=== PATIENT | male | born 1970 | race Caucasian/White ===

== ENCOUNTER 2017-11-21 15:16 | Outpatient (CLI) | payer BC ==
[2017-11-21 15:44] LABS: Hemoglobin 16.3 g/dL (14.0-18.0); Mean Corpuscular HGB CONC 32.8 g/dL (32.0-36.0); Mean Corpuscular Hemoglobin 27.8 pg (27.0-31.0); Mean Corpuscular Volume 84.8 fl (80.0-94.0); Mean Platelet Volume 7.1 fL (7.4-10.4); Platelet Count 306 thou/uL (130-400); RBC Distribution Width 11.9 % (11.5-14.5); Red Blood Cell (RBC) Count 5.87 mill/uL (4.70-6.10); White Blood Cell (WBC) Count 7.5 thou/uL (4.8-10.8)
[2017-11-21 15:51] LABS: INR-International Normal Ratio 1.1; PTT 29.3 SEC (22.9-36.1)
[2017-11-21 15:56] LABS: Bilirubin Negative (Negative); Blood, Urine Trace (Negative); Clarity CLEAR (Clear); Glucose, Urine (Dipstick) Negative (Negative); Leukocyte Negative (Negative); Nitrite Negative (Negative); Protein, Urine (Dipstick) Negative (Neg-Trace); Specific Gravity, Urine 1.028 (1.002-1.036); Urobilinogen 0.2 mg/dL (0.2-1.0); pH, Urine 5.5 (5.0-9.0)
[2017-11-21 16:00] LABS: Bacteria/HPF None Seen HPF (None Seen); Hyaline Casts/LPF 0-3 HYALINE CAST LPF (0-3 Hyaline); RBC/HPF 0-3 HPF (0-3); Squamous Epithelial None Seen HPF (0-3); WBC/HPF 0-3 HPF (0-3)
[2017-11-21 16:01] LABS: Anion Gap 12 mmol/L (10-20); BUN (Urea Nitrogen) 25 mg/dL (8.9-20.6); Calc. Creatinine Clearance 0 mL/min (70-130); Calcium 9.4 mg/dL (7.8-10.44); Carbon Dioxide 25 mmol/L (22-29); Chloride 105 mmol/L (98-107); Estimated GFR-MDRD 60; Glucose 102 mg/dL (70-105); Sodium 138 mmol/L (136-145)
[2017-11-21 16:50] LABS: Syphilis Antibody Nonreactive (Nonreactive); Syphilis Antibody Index 0.04 S/CO (<1.00 Non-Reactive)
[2017-11-21 16:54] LABS: HBCM Index 0.06 S/CO (0-0.79); HBSAg Index 0.15 S/CO (0-0.99); HIV (1/2) Antibody/Antigen Non-Reactive (NonReactive); Hep A IgM AB Non-Reactive (NonReactive); Hep A IgM S/CO 0.07 S/CO (0-0.79); Hep B Surf Ag Non-Reactive S/CO (NonReactive); Hep C IgG Ab Non-Reactive (NonReactive); Hep C Index 0.07 S/CO (0-0.79); Hepatitis B Core IGM Abs Non-Reactive (NonReactive); PSA-Asymptomatic (SCREENING) 2.19 ng/mL (0-4.0)
--- NOTE | 2017-11-23 09:02 | EKG ---
Test Reason : Blood Pressure : / mmHG Vent. Rate : 085 BPM Atrial Rate : 085 BPM P-R Int : 136 ms QRS Dur : 094 ms QT Int : 362 ms P-R-T Axes : 070 -70 055 degrees QTc Int : 430 ms Poor data quality, interpretation may be adversely affected /artifact inbaseline. Normal sinus rhythm Left anterior fascicular block Nonspecific ST abnormality Abnormal ECG No previous ECGs available Confirmed by ITEN HORN ([id number]) on 11/23/2017 9:02:10 AM Referred By: ALEJO Confirmed By:TIEN HORN
[2017-11-24 00:50] LABS: Chlamydia by PCR Not Detected (NotDetected); GC by PCR Not Detected (NotDetected)
== END 2017-11-21 15:17 | disposition home or self-care (01) ==
LOC: LABBT 15:16
PROVIDERS: ATTEND Urology
DX: Z01.818 Encounter for other preprocedural examination (principal); A63.0 Anogenital (venereal) warts
CPT/HCPCS: 80048; 80074; 81001; 85027; 85610; 85730; 86780; 87086; 87389; 87491; 87591; 93005; 93010; G0103

== ENCOUNTER 2017-12-04 06:57 | Day surgery (SDC) | payer BC ==
[2017-11-21 15:42] VITALS: BMI 27.8
[2017-12-04] MEDS ORDERED: Levofloxacin 500 mg/D5W 100 ml Premix Bag ONE (08:14)
[2017-12-04] MEDS ORDERED: Fentanyl 100 MCG/2 ML VIAL ONE (08:59)
[2017-12-04] MEDS ORDERED: Bacitracin Zinc Ointment 30 gm TUBE ONE (09:57)
[2017-12-04] MEDS ORDERED: Phenazopyridine HCl 97.5 MG TABLET ONE (10:34)
[2017-12-04] MEDS ORDERED: Oxybutynin 5 MG TAB ONE (10:34)
--- NOTE | 2017-12-04 11:23 | OP ---
PRIMARY CARE PHYSICIAN: Orlin Moses M.D. 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 PROCEDURES: Cystoscopy, excisional removal of jacquelin-meatal condyloma, meatotomy. SURGEON: Jackie Marsh D.O. ANESTHESIA: LMA. COMPLICATIONS: None apparent. DISPOSITION: Minimal. SPECIMEN: Jacquelin-meatal condyloma for permanent. EBL: Minimal. INTRAOPERATIVE FINDINGS: 1. Jacquelin-meatal condylomatous lesion approximately 8-10 mm in total dimension. 2. Cystoscopy without evidence of urethral stricture, no urethral condyloma. 3. Mild BPH. 4. Bladder grossly unremarkable. DRAINS: A 16 Telugu 10 mL Gee catheter to leg bag. INDICATIONS FOR THE PROCEDURE AND HISTORY: Mr. Rios is a 47-year-old male referred to me for a jacquelin-meatal lesion. The patient had sudden onset of difficulty passing urine, split stream. Physical exam demonstrated jacquelin-meatal condylomatous lesion upon everting his meatus. No other lesions were found along the penile shaft or scrotum. He presents today for excisional removal of perineal condyloma. Given the location, cystourethroscopy is advised to rule out further lesion along the course of the urethra. Risks, complications and indications were reviewed with the patient in detail and he desired to proceed. His STD panel is negative. DESCRIPTION OF THE PROCEDURE: After informed consent is signed, the patient is taken to the operating room, placed in a dorsal lithotomy position with the genital area prepped and draped in the usual surgical sterile fashion. Broad- spectrum antibiotics were provided. Bilateral HUBER hose and SCDs placed. We first performed the jacquelin-meatal excisional removal of his condyloma. Upon everting the meatus, there is a condylomatous lesion on both sides of meatus. This was retracted with fine graspers and at the base we excised en bloc total. There was some oozing at the bed of the excisional site. We held pressure here, so that we can further evaluate for complete excision. No further lesion was found. I did perform a rigid cystoscopy at this time demonstrating no further lesions along the course of the urethra. No strictures were found. Bilateral coapting lateral lobes of the prostate are noted with the supraverumontanal length approximately 3 cm. There is a high median bar, bladder was entered which demonstrated no evidence of bladder lesion, tumors, stones or trabeculation. The ureteral orifices somewhat deviated anteriorly; however, they are within the trigone in normal location. Clear efflux of urine was noted. We again surveyed the urethra confirming there was no evidence of lesion, otherwise. At this time, we again staged his meatus. The initial meatal caliber was somewhat small, approximately 14 Telugu caliber. As the excisional biopsy was performed with minimal cautery performed at the base, I did have concern regarding high risk of meatal stenosis. Therefore, decision was made to perform a meatotomy along the ventral aspect of his meatus. Using a hemostat, we marked the area of meatotomy approximately 5 mm. This was excised with Metzenbaum scissors. The meatal mucosa was then everted using 4-0 chromic and an SH needle. Good eversion of the meatal mucosa was noted with no further lesions appreciated. A 16 Telugu Gee catheter was placed and 10 mL insufflated. Bacitracin ointment was applied at the meatus site. He will follow up in my clinic next week for catheter removal and to review pathology. JOE
[2017-12-04] MEDS ORDERED: Lidocaine 1% PF 5 ML VIAL ONE (12:16)
[2017-12-04] MEDS ORDERED: PROPOFOL 200 MG/20 ML VIAL ONE (12:16)
== END 2017-12-04 12:43 | disposition home or self-care (01) ==
LOC: SDC 06:57
PROVIDERS: ATTEND Urology
PROC: 0TJB8ZZ Inspection of Bladder, Via Natural or Artificial Opening Endoscopic (ICD-10-PCS; principal; 2017-12-04)
PROC: 0T7D7ZZ Dilation of Urethra, Via Natural or Artificial Opening (ICD-10-PCS; principal; 2017-12-04)
PROC: 0HBAXZZ Excision of Inguinal Skin, External Approach (ICD-10-PCS; principal; 2017-12-04)
DX: A63.0 Anogenital (venereal) warts (principal); N40.0 Benign prostatic hyperplasia without lower urinary tract symptoms; F32.9 Major depressive disorder, single episode, unspecified; Z79.2 Long term (current) use of antibiotics; Z79.899 Other long term (current) drug therapy; Z88.1 Allergy status to other antibiotic agents; Z88.6 Allergy status to analgesic agent
CPT/HCPCS: 88305; C1769; J1956; J3010

== ENCOUNTER 2019-06-07 15:41 | Observation (INO) | payer BC ==
[2019-06-07 16:22] LABS: Hemoglobin 20.2 g/dL (14.0-18.0); Mean Corpuscular HGB CONC 33.3 g/dL (32.0-36.0); Mean Corpuscular Hemoglobin 28.6 pg (27.0-31.0); Mean Platelet Volume 7.5 fL (7.4-10.4); Platelet Count 261 thou/uL (130-400); RBC Distribution Width 12.7 % (11.5-14.5); Red Blood Cell (RBC) Count 7.05 mill/uL (4.70-6.10); White Blood Cell (WBC) Count 9.4 thou/uL (4.8-10.8)
[2019-06-07 16:23] LABS: #Basophils 0.1 thou/uL (0.0-0.2); #Eosinphils 0.1 thou/uL (0.0-0.7); #Lymphocytes 1.2 thou/uL (1.20-3.40); #Monocytes 0.7 thou/uL (0.11-0.59); #Neutrophils 7.3 thou/uL (1.40-6.50); %Basophils 1.1 % (0.0-1.0); %Eosinophils 0.7 % (0.0-10.0); %Monocytes 7.6 % (0.0-10.0); %Neutrophils 77.6 % (42.0-75.0)
[2019-06-07] MEDS ORDERED: Ondansetron PF 4 MG/2 ML Vial ONE ×2 (16:26→19:00)
[2019-06-07 16:29] LABS: ALT (SGPT) 19 U/L (8-55); AST (SGOT) 18 U/L (5-34); Albumin 4.4 g/dL (3.5-5.0); Alkaline Phosphatase 105 U/L (40-110); Anion Gap 19 mmol/L (10-20); BUN (Urea Nitrogen) 9 mg/dL (8.4-25.7); Bilirubin, Total 0.9 mg/dL (0.2-1.2); CK (CPK) 160 U/L (30-200); Calc. Creatinine Clearance 0 mL/min (70-130); Calcium 9.2 mg/dL (7.8-10.44); Carbon Dioxide 24 mmol/L (22-29); Chloride 102 mmol/L (98-107); Estimated GFR-MDRD 49; Globulin 2.9 g/dL (2.4-3.5); Glucose 130 mg/dL (70-105); Potassium 4.1 mmol/L (3.5-5.1); Protein, Total 7.3 g/dL (6.0-8.3); Sodium 141 mmol/L (136-145)
[2019-06-07 16:30] LABS: Acetaminophen Less than 6.0 mcg/mL (10.0-30.0); Alcohol Less than 10 mg/dL (Less than 10); Salicylate Less than 8.0 mg/dL (15.0-30.0)
[2019-06-07] MEDS ORDERED: Lidocaine 1% 20 ML MDV ONE (16:31)
--- NOTE | 2019-06-07 16:46 | RAD ---
Exam: Chest one view HISTORY:Syncope Comparison: None FINDINGS: Cardiac silhouette: Normal Aorta: Unremarkable Pulmonary vessels: Normal Costophrenic angles: Clear LUNGS: No masses or consolidation. Pneumothorax: None Osseous abnormalities: None IMPRESSION: No acute cardiopulmonary process.
--- NOTE | 2019-06-07 16:50 | CT ---
Exam: MAXILLOFACIAL CT WITHOUT CONTRAST: HISTORY: Trauma. Fall. Laceration over the right eyebrow. COMPARISON: None FINDINGS: Visualized brain parenchyma: Grossly unremarkable Orbits: Bilateral ocular lenses are appropriately located. Both globes are intact. Retrobulbar fat is preserved. Symmetric attenuation of the optic nerves and ocular rectus muscles. Soft tissue structures: There is a right frontal scalp hematoma. Posttraumatic changes in the right s upraorbital and periorbital soft tissues with swelling, hematoma and air due to laceration. Symmetric attenuation of the corporate communications associate spaces. Symmetric attenuation of the parotid and submandibula r glands. Symmetric attenuation visualized paraspinal muscles Aerodigestive tract is patent. Sinuses: There is partial opacification of the right ethmoid air cells. There is an air-fluid level i n the right maxillary sinus, likely due to posttraumatic fluid. Small mucous retention cyst in the left maxillary sinus. Adequate mastoid air cell aeration Nasal bones: Nondisplaced right and left nasal bone fractures are noted. Nasal septum is intact with slight leftward deviation. Bilaterally ostiomeatal complexes are patent Maxilla and mandible: No fractures. Mandibular condyles are appropriately located Upper cervical spine is unremarkable Pterygoid plates are unremarkable Zygomatic arches are intact Osseous margins of the sinuses: No obvious paranasal sinus fracture Osseous margins of the orbits: Minimally displaced right orbital floor fracture. No evidence of herni ation with regards the intraorbital contents. Correlate clinically for entrapment. Fractures near the inferior orbital foramen. IMPRESSION: 1. Right frontal scalp and periorbital posttraumatic change. 2. Bilateral nasal bone fractures nondisplaced 3. Minimally displaced right orbital floor fracture, near the inferior orbital foramen. Transcribed Date/Time: 06/07/2019 5:00 PM
--- NOTE | 2019-06-07 17:11 | CT ---
CT BRAIN WITHOUT CONTRAST: History: Syncope. Head trauma. FINDINGS: Comparison made with exam of 08-30-13. No evidence of acute infarct, hemorrhage, midline shift. The ventricular size is normal and the basil ar cisterns patent. The bony calvarium is intact. There is fluid in the right maxillary sinus. There is right sided periorbital soft tissue swelling. The possibility of fracture of the right maxillary/o rbital wall cannot be excluded. IMPRESSION: 1. No CT evidence of acute intracranial process. 2. Evaluation with CT facial bones is recommended. POS: ANGELICA
--- NOTE | 2019-06-07 17:15 | CT ---
Exam: CT cervical spine without contrast HISTORY: Trauma. Pain. COMPARISON: None FINDINGS: No craniocervical dissociation. Appropriate alignment of the lateral masses of C1 and C2. Intact odon toid process Appropriate alignment of the facets. Straightening of normal cervical lordosis may be due to patient position, muscle spasm or cervical collar. Soft tissue neck structures: No mass, lymphadenopathy or hematoma. No prevertebral soft tissue swelli ng. Upper mediastinum and lung apices: Unremarkable Central spinal canal: Neural foramina and central spinal canal are patent. Evaluation is limited by t echnique Vertebral bodies: Cervical spine vertebral body height is maintained. No fracture. IMPRESSION: 1. No fracture 2. Straightening of normal cervical lordosis as above. If there is concern for ligamentous injury, MR I can be performed.
[2019-06-07] MEDS ORDERED: Lidocaine 1% w/Epinephrine 1:100K 20 ML VIAL ONE (17:18)
--- NOTE | 2019-06-07 18:36 | CT ---
CT ANGIOGRAM OF THE NECK: HISTORY: Trauma. Fall. Syncope. COMPARISON: None TECHNIQUE: CT angiogram neck is performed in the axial plane. Three-dimensional reformatted images ar e submitted for interpretation. FINDINGS: Postcontrast head CT: Visualized brain parenchyma is unremarkable. Sinuses: Post traumatic changes and sinus opacification as detailed maxillofacial CT are redemonstrat ed. Aerodigestive tract: Limited evaluation of the oral cavity due to dental amalgam artifact. No obvious masses. Midline fatty raphae of the tongue appears be preserved. Nasopharynx is unremarkable. The hypopharynx is unremarkable. Supraglottic, glottic and subglottic larynx are unremarkable. Symmetric attenuation the paraspinal muscles. Appropriate attenuation in the visualized submandibular glands, parotid glands. Unremarkable thyroid gland. Upper mediastinum and lung apices are unremarkable for acute abnormality. CT ANGIOGRAM: Central spinal canal and left neural foramina appear to be grossly patent. Limited evaluation by tech nique. There does appear to be significant right neural foraminal narrowing at the C3-C4, C5-C6 levels. Visualized aortic arch has appropriate enhancement and luminal diameter. Right carotid: Appropriate enhancement and luminal diameter of the origin the innominate artery, comm on carotid artery, carotid bifurcation and internal carotid artery. Left carotid: Appropriate enhancement and luminal diameter the origin left carotid artery, common car otid artery, carotid bifurcation and internal carotid artery. Bilateral cervical vertebral arteries are patent and codominant. Subclavian arteries are unremarkable. IMPRESSION: 1. No evidence of carotid dissection or injury. No evidence of significant stenosis based upon NASCET criteria. Transcribed Date/Time: 06/07/2019 6:52 PM
[2019-06-07] MEDS ORDERED: Adacel (T-DAP) 0.5 ML SYRINGE ONE (18:46)
[2019-06-07 19:31] LABS: Bilirubin Negative (Negative); Blood, Urine Trace (Negative); Clarity Hazy (Clear); Glucose, Urine (Dipstick) Negative (Negative); Leukocyte Negative (Negative); Nitrite Negative (Negative); Protein, Urine (Dipstick) 30 mg/dL (Neg-Trace); Urobilinogen 0.2 mg/dL (Less than 2)
[2019-06-07 19:32] LABS: RBC/HPF 0-3 HPF (0-3)
[2019-06-07 19:33] LABS: Bacteria/HPF Rare-Few HPF (None Seen); Squamous Epithelial None Seen HPF (0-3); WBC/HPF None Seen HPF (0-3)
[2019-06-07 19:41] LABS: Cocaine Metabolite Screen Not Detected (NotDetected); Methamphetamine Not Detected (NotDetected); Opiate Screen Detected (NotDetected); Phencyclidine (PCP) Not Detected (NotDetected); THC/Cannabinoid Screen Detected (NotDetected)
[2019-06-07 19:42] LABS: Amphetamine Not Detected (NotDetected); Barbiturates Screen Not Detected (NotDetected); Benzodiazepine Screen Not Detected (NotDetected); Medtox Control Line Valid? VALID (VALID); Methadone Not Detected (NotDetected); Oxycodone Screen Not Detected (NotDetected); Tricyclic Screen Not Detected (NotDetected)
[2019-06-07] MEDS ORDERED: Promethazine HCl 25 MG/ML VIAL IM/IV PRN ×2 (20:37→21:07)
[2019-06-07] MEDS ORDERED: Dextrose 5% in Water 1,000 ML IV PRN (20:37)
[2019-06-07] MEDS ORDERED: Dextrose 50% Abboject 50 ML SYRINGE SLOW IVP PRN (20:37)
[2019-06-07] MEDS ORDERED: Morphine 4 MG/ML VIAL SLOW IVP PRN ×2 (20:37→20:46)
[2019-06-07] MEDS ORDERED: traMADol HCl 50 MG TAB PO PRN (20:40)
[2019-06-07] MEDS ORDERED: Ondansetron PF 4 MG/2 ML Vial IVP SCH (20:45)
[2019-06-07] MEDS ORDERED: Acetaminophen 1,000 MG in Premix Bag 1 BAG IVPB SCH (21:15)
[2019-06-07] MEDS: Senokot S 8.6-50 MG TAB PO SCH (21:41)
[2019-06-07] MEDS: Acetaminophen 500 MG TAB PO SCH (21:41)
[2019-06-07 23:41] VITALS: BMI 27.8
[2019-06-08] MEDS: traMADol HCl 50 MG TAB PO PRN (00:08)
--- NOTE | 2019-06-08 00:37 | HP ---
CHIEF COMPLAINT: Forehead laceration. HISTORY OF PRESENT ILLNESS: The patient is a 49-year-old male, who attempted suicide by hanging himself by a belt in the garage. The belt gave way and he fell to the floor, striking his head. He has been seen and evaluated by the emergency room physician, Dr. Israel. Please see his note for further details. ALLERGIES: IBUPROFEN AND AZITHROMYCIN. REVIEW OF SYSTEMS: Noncontributory. MEDICATIONS: Reviewed in the chart. PHYSICAL EXAMINATION: HEENT: There is a transverse stellate laceration of the right forehead just above the eyebrow. There are no bony step-offs. The length of the laceration is approximately 9 cm. Cranial nerve 7 is intact. The patient is in a neck brace. ASSESSMENT: Facial laceration. PLAN: Repair. DESCRIPTION OF PROCEDURE: Following induction of adequate local anesthesia, the patient was prepped and draped in usual sterile fashion in supine position. The wound was copiously irrigated. The ragged fragments of the incision were sharply debrided. The incision was then closed in layers using a combination of 4-0 Vicryl and 4-0 Monocryl to reapproximate and re-elevate the brow followed by 5-0 Prolene for the skin. Wound closure was approximately 9 cm. The wound was copiously irrigated and inspected for meticulous hemostasis prior to closure. Job ID: [id number]
[2019-06-08] MEDS: Ondansetron PF 4 MG/2 ML Vial IVP PRN (02:28)
[2019-06-08] MEDS: Acetaminophen 500 MG TAB PO SCH ×4 (02:48→20:11)
--- NOTE | 2019-06-08 03:32 | PRG ---
DATE OF SERVICE: 06/07/2019 TRAUMA SURGEON: Dr. Guaman. CONSULT PHYSICIAN: Dr. Jones. HISTORY OF PRESENT ILLNESS: The patient is a 49-year-old male who was directly admitted to [place] [id number] from [facility] Emergency Department. The patient reports today he tried to hang himself in his garage and subsequently his belt broke and he fell about 10 feet to the floor. He did have a loss of consciousness before hitting the ground. He reported when he woke up on the ground, he was having pain and not feeling well. He was able to ambulate to the restroom where he started to feel unwell again and laid down. He did present to the emergency department there and received a full workup which demonstrated the patient had a right orbital floor fracture and laceration to the right side of his face, which was repaired there. On my evaluation, the patient reported he was nauseous and had a headache, but he was alert and oriented x3. GCS 15. He denied any difficulty breathing or swallowing. REVIEW OF SYSTEMS: All additional 10-point review of systems negative except as indicated above. PAST MEDICAL HISTORY: Hypertension, depression, and elevated hemoglobin/ hematocrit. PAST SURGICAL HISTORY: Vasectomy, hemorrhoidectomy, and venereal wart removal. SOCIAL HISTORY: The patient lives at home with his . He is a dentist by profession and he did report to the outside hospital ED that this was not his first suicidal attempt. MEDICATIONS: Cymbalta, propranolol, testosterone, vitamin D, nitric acid, ALAmax, DHEA, testosterone. ALLERGIES: IBUPROFEN AND AZITHROMYCIN. PHYSICAL EXAMINATION: VITAL SIGNS: Temperature 98.1, pulse 100, respirations 18, oxygen saturation 98 % on room air, blood pressure 164/100. PRIMARY SURVEY: Airway intact. Adequate breath sounds bilaterally. 2+ pulses in the bilateral radials, femorals, and DPs. GCS 15. Gross motor and sensation are intact. Laceration and right periorbital bruising over the right eye. Laceration has since been repaired. There is no active bleeding. SECONDARY SURVEY: HEAD: Normocephalic. Right-sided periorbital bleeding with no signs of orbital entrapment. There is a laceration to the right brow which has been repaired. No gross palpable skull deformities. EYES: Pupils 3 to 2, equal, round, reactive to light bilaterally. ENT: No hemotympanum. No epistaxis. No septal hematoma. Midface stable to manipulation. No blood in the oropharynx. Dentition is intact. No anterior neck injury/crepitus/tenderness. C-SPINE: No step-offs or deformities, nontender. C-collar removed by Trauma Team. CHEST: Nontender. No crepitus. No abrasions or ecchymosis. Equal chest movement. ABDOMEN: Soft, nontender, nondistended. PELVIS: Stable to manipulation, nontender. RECTAL: Deferred. GENITOURINARY: Deferred. EXTREMITIES: 2+ pulses in all extremities. Gross motor and sensation are intact. No abrasions or ecchymosis noted. BACK/SPINE: No step-offs or deformities or tenderness to palpation of the thoracic or lumbar spine. No abrasions or ecchymosis noted. NEUROLOGIC: 5/5 strength in bilateral railroad car loader, plantar flexion, dorsiflexion. Gross normal sensation x4 extremities. LABORATORY FINDINGS: White count 9.4, hemoglobin 20.2, hematocrit 60.6, platelets 261. Sodium 141, potassium 4.1, chloride 102, carbon dioxide 24, BUN 9, creatinine 1.56, glucose 130. Troponin 0.012. UA is negative. Plasma alcohol is less than 10. Urine drug screen is positive for cannabinoids, acetaminophen, opiates, and salicylates. DIAGNOSTIC FINDINGS: CT of the brain demonstrates no CT evidence of acute intracranial process, evaluation with CT facial bone is recommended. CT of the C-spine demonstrates no fracture. Straightening of the normal cervical lordosis as above. If there is concern for ligamentous injury, MRI can be performed. Chest x-ray demonstrates no acute cardiopulmonary process. CT of the facial bones demonstrate right frontal scalp and periorbital posttraumatic changes, bilateral nasal bone fractures, nondisplaced. Minimal displaced right orbital floor fracture near the inferior orbital foramen. CTA of the C-spine demonstrates no evidence of carotid dissection or injury. No evidence of significant stenosis based upon NASCET criteria. ASSESSMENT: 1. Status post suicide attempt by hanging. 2. Concussion. 3. Acute kidney injury. PLAN: The patient did receive tetanus in the emergency department. He was admitted to the Trauma Surgical floor and sitter is at bedside. He has a diet ordered with a suicide tray. The patient's is at bedside. The patient having symptoms of concussion such as nausea, vomiting. His concussive symptoms will be treated with medications. [facility] has been contacted for evaluation of facial fractures. They reported that it is nonoperative and the patient can follow up in the clinic in a week. We will consult [facility] in the morning for placement for inpatient psych. Job ID: [id number] MTDPatric
[2019-06-08 05:18] LABS: #Lymphocytes 0.9 thou/uL (1.20-3.40); #Monocytes 1.3 thou/uL (0.11-0.59); #Neutrophils 11.2 thou/uL (1.40-6.50); %Basophils 0.3 % (0.0-1.0); %Eosinophils 0.1 % (0.0-10.0); %Lymphocytes 6.4 % (21.0-51.0); %Monocytes 9.9 % (0.0-10.0); %Neutrophils 83.4 % (42.0-75.0); Hemoglobin 17.7 g/dL (14.0-18.0); Mean Corpuscular HGB CONC 32.3 g/dL (32.0-36.0); Mean Corpuscular Hemoglobin 28.3 pg (27.0-31.0); Mean Corpuscular Volume 87.3 fL (78.0-98.0); Mean Platelet Volume 6.8 fL (7.4-10.4); Platelet Count 271 thou/uL (130-400); RBC Distribution Width 12.8 % (11.5-14.5); Red Blood Cell (RBC) Count 6.26 mill/uL (4.70-6.10); White Blood Cell (WBC) Count 13.5 thou/uL (4.8-10.8)
[2019-06-08 05:44] LABS: Anion Gap 14 mmol/L (10-20); BUN (Urea Nitrogen) 10 mg/dL (8.4-25.7); Calc. Creatinine Clearance 76 mL/min (70-130); Calcium 8.9 mg/dL (7.8-10.44); Carbon Dioxide 25 mmol/L (22-29); Chloride 103 mmol/L (98-107); Estimated GFR-MDRD 50; Glucose 126 mg/dL (70-105); Magnesium 1.8 mg/dL (1.6-2.6); Phosphorus 2.6 mg/dL (2.3-4.7); Potassium 3.8 mmol/L (3.5-5.1); Sodium 138 mmol/L (136-145)
[2019-06-08] MEDS: Senokot S 8.6-50 MG TAB PO SCH ×2 (08:31→20:11)
[2019-06-08] MEDS: Polyethylene Glycol 3350 17 GM Packet PO SCH (08:32)
[2019-06-08] MEDS ORDERED: FLU VACC QS2019-20(6MOS UP)/PF 60 MCG/0.5 ML SYRINGE IM ONE (09:00)
--- NOTE | 2019-06-08 15:01 | PDOC.FM ---
- Subjective Subjective: Mr. Rios was resting comfortably in his hospital bed with several members of his family in the room at the time of evaluation. He complained of no acute overnight events such as worsening headache, changes in vision, chest pain, shortness of breath, nausea or vomiting. He stated that he was happy with his current care team and treatment plan, but that he was anxious to go home. - Objective Vital Signs & Weight: Vital Signs (12 hours) Temp Pulse Resp BP Pulse Ox 06/08/19 07:43 98.3 F 88 16 125/84 95 06/08/19 04:40 98.3 F 90 18 157/90 H 95 Weight Weight 99.337 kg I&O: 06/07/19 06/08/19 06/09/19 06:59 06:59 06:59 Intake Total 123 240 Output Total 400 Balance -277 240 Result Diagrams: 06/08/19 05:01 06/08/19 05:01 Radiology Reviewed by me: Yes (Reports and images) Phys Exam - Physical Examination Constitutional: NAD HEENT: PERRLA, moist MMs, sclera anicteric, oral pharynx no lesions Mild periobital ecchymosis and edema Neck: supple, full ROM Respiratory: no wheezing, no rales, no rhonchi, clear to auscultation bilateral Cardiovascular: RRR, no significant murmur, no rub Gastrointestinal: soft, non-tender, no distention, positive bowel sounds Musculoskeletal: no edema, pulses present Neurological: non-focal, moves all 4 limbs Psychiatric: normal affect, A&O x 3 Deviation from normal: See HEENT Dx/Plan - Plan Plan: 1. Multiple Facial Fractures -Secondary to traumatic injury sustained during suicide attempt by hanging -CT Brain: No acute intracranial processes -CT C-Spine: No evidenced of fracture - MRI recommended for suspected ligamentous injury -CTA Neck: No evidence of Carotid Artery dissection or stenosis -CXR: NAF -Pain controlled w/ Tramadol 50 mg PO Q6H and Acetaminophen 1000 mg PO Q6H -Conservative medical management appropriate at this time 2. Multiple Facial Lacerations -Secondary to traumatic injury sustained during suicide attempt by hanging -Repaired via suturing by Dr. Rodriguez (Plastic Surgery) -Lacerations currently appear stable w/o evidence of hemodynamic compromise 3. Concussion -Secondary to traumatic injury sustained during suicide attempt by hanging -Patient allegedly fell ~10 FT but lost consciousness prior to impact -Patient reported headaches and mild nausea during evaluation in the ED -Patient is A&O x3 with minimal residual symptoms - mild TBI likely -Continue to follow clinically 4. Suicide Attempt -Per the patient, most recent suicide attempt arose after disagreement with -Patient has attempted suicide x2 in the past -[facility]: Consulted -Case Management: Consulted -Patient appears to have firm support network in place 4. Elevated Hg / Hct -H.2 / Hct: 60.6 on 06/08 -Patient reportedly on steroid replacement therapy due to low Testosterone -Denied fevers, chills, night sweats or abnormal weight changes - no classic symptoms of Polycythemia Vera -Etiology unknown at this time - further investigation required prior to DC -Trend AM labs Plan: Patient currently appears stable on the Surgical Floor. Based on patient' s active suicide attempt, [facility] recommended inpatient hospitalization for further psychiatric evaluation and work-up. Continue to manage medically and await placement at in-patient psychiatric facility Expected LOS < 48H Note: Dr. Turner was present at the time of evaluation and agrees with the plan as stated above.
[2019-06-08] MEDS ORDERED: Propranolol 10 MG TAB PO SCH (20:00)
[2019-06-08] MEDS ORDERED: hydrALAZINE 20 MG/ML VIAL SLOW IVP PRN (23:26)
[2019-06-08] MEDS ORDERED: hydrALAZINE 20 MG/ML VIAL SLOW IVP SCH ×2 (23:30→23:45)
[2019-06-08] MEDS ORDERED: DULoxetine 60 MG CAP PO SCH (23:45)
[2019-06-09] MEDS: traMADol HCl 50 MG TAB PO PRN ×2 (00:10→08:55)
--- NOTE | 2019-06-09 01:28 | PRG ---
DATE OF SERVICE: 06/09/2019 SUBJECTIVE: The patient was seen this evening during rounds. He was resting in bed comfortably and asleep with no signs of acute distress. Nursing reported no acute events. OBJECTIVE: VITAL SIGNS: Temperature 98.7, pulse 98, respirations 16, oxygen saturation 95% on room air, blood pressure 161/96. GENERAL: Well-appearing middle-aged male lying in bed with no signs of acute distress. PULMONARY: Equal chest rise and fall. No signs of acute respiratory distress. ASSESSMENT: 1. Status post hanging, suicidal attempt. 2. Concussion. 3. Bilateral nasal bone fracture, nonoperative. 4. Right-sided orbital floor fracture, nonoperative. 5. Right brow laceration, status post repair. 6. History of suicide attempts in the past, elevated hemoglobin, and depression. PLAN: Restart his home medications of propranolol and Cymbalta. The patient is medically cleared and ready for transfer to inpatient psych. Hopefully, he will have a bed tomorrow. Job ID: [id number]
[2019-06-09] MEDS: Acetaminophen 500 MG TAB PO SCH ×2 (02:42→08:55)
[2019-06-09 05:17] LABS: Hemoglobin 17.3 g/dL (14.0-18.0); Mean Corpuscular HGB CONC 31.6 g/dL (32.0-36.0); Mean Corpuscular Hemoglobin 27.7 pg (27.0-31.0); Mean Corpuscular Volume 87.9 fL (78.0-98.0); Mean Platelet Volume 6.9 fL (7.4-10.4); Platelet Count 245 thou/uL (130-400); RBC Distribution Width 12.7 % (11.5-14.5); Red Blood Cell (RBC) Count 6.23 mill/uL (4.70-6.10); White Blood Cell (WBC) Count 9.4 thou/uL (4.8-10.8)
[2019-06-09 05:35] LABS: Anion Gap 14 mmol/L (10-20); BUN (Urea Nitrogen) 11 mg/dL (8.4-25.7); Calc. Creatinine Clearance 94 mL/min (70-130); Calcium 8.9 mg/dL (7.8-10.44); Carbon Dioxide 26 mmol/L (22-29); Chloride 103 mmol/L (98-107); Estimated GFR-MDRD 58; Glucose 105 mg/dL (70-105); Magnesium 1.8 mg/dL (1.6-2.6); Sodium 139 mmol/L (136-145)
[2019-06-09 05:44] LABS: Phosphorus 1.9 mg/dL (2.3-4.7)
[2019-06-09] MEDS ORDERED: Sodium Phosphate 30 MMOL in Sodium Chloride 0.9% 250 ML 250 ML IVPB SCH (06:00)
[2019-06-09] MEDS: Ondansetron PF 4 MG/2 ML Vial IVP PRN (06:23)
[2019-06-09] MEDS ORDERED: PHOS-NAK 1 PKT PACK PO SCH (06:30)
--- NOTE | 2019-06-09 07:08 | PDOC.FM ---
- Objective Vital Signs & Weight: Vital Signs (12 hours) Temp Pulse Resp BP BP Pulse Ox 06/09/19 04:28 98 06/09/19 03:55 98.6 F 98 17 171/94 H 95 06/09/19 03:39 98.6 F 98 18 185/80 H 95 06/09/19 00:15 161/96 H 06/08/19 23:49 98.7 F 98 16 162/104 H 95 06/08/19 23:40 98 06/08/19 19:29 98.7 F 98 16 183/103 H 95 Weight Weight 99.337 kg I&O: 06/08/19 06/09/19 06/10/19 06:59 06:59 06:59 Intake Total 123 240 Output Total 400 Balance -277 240 Result Diagrams: 06/09/19 04:42 06/09/19 04:42 Dx/Plan - Plan Plan: 1. Multiple Facial Fractures -Secondary to traumatic injury sustained during suicide attempt by hanging -CT Brain: No acute intracranial processes -CT C-Spine: No evidenced of fracture - MRI recommended for suspected ligamentous injury -CTA Neck: No evidence of Carotid Artery dissection or stenosis -CXR: NAF -Pain controlled w/ Tramadol 50 mg PO Q6H and Acetaminophen 1000 mg PO Q6H -Swelling/tenderness appears to be reduced - no ocular compromise suspected -Conservative medical management appropriate at this time 2. Multiple Facial Lacerations -Secondary to traumatic injury sustained during suicide attempt by hanging -Repaired via suturing by Dr. Rodriguez (Plastic Surgery) -Lacerations currently appear stable w/o evidence of hemodynamic compromise 3. Concussion -Secondary to traumatic injury sustained during suicide attempt by hanging -Patient allegedly fell ~10 FT but lost consciousness prior to impact -Patient reported headaches and mild nausea during evaluation in the ED -Patient is A&O x3 with minimal residual symptoms - mild TBI likely -Continue to follow clinically 4. Suicide Attempt -Per the patient, most recent suicide attempt arose after disagreement with -Patient has attempted suicide x2 in the past -[facility]: Consulted -Case Management: Consulted -Patient appears to have firm support network in place 4. Elevated Hg / Hct, improved -H.3 / Hct: 54.7 on 06/09 -Patient reportedly on steroid replacement therapy due to low Testosterone -Denied fevers, chills, night sweats or abnormal weight changes - no classic symptoms of Polycythemia Vera -Etiology unknown at this time - suspect steroid replacement therapy -Trend AM labs Plan: Patient currently appears stable on the Surgical Floor. Awaiting placement at in-patient psychiatric facility based on [facility]MR recommendations. Continue to coordinate with Case Management and [facility] as needed in order to plan for DC. Expected LOS < 48H Note: Dr. Turner was present at the time of evaluation and agrees with the plan as stated above.
[2019-06-09] MEDS: Senokot S 8.6-50 MG TAB PO SCH (08:55)
[2019-06-09] MEDS: Polyethylene Glycol 3350 17 GM Packet PO SCH (08:56)
[2019-06-09] MEDS ORDERED: Propranolol 10 MG TAB PO SCH ×2 (09:00)
[2019-06-09] MEDS ORDERED: Enoxaparin Sodium 30 MG/0.3 ML SYRINGE SC SCH (09:00)
[2019-06-09 11:31] VITALS: BP 154/91; TEMP 98
--- NOTE | 2019-06-09 16:48 | PRG ---
DATE OF SERVICE: 06/09/2019 SUBJECTIVE: Mr. Rios is a 49-year-old male, who presented to the ED on 06/07/2019, following a fall from approximately 20 feet during an attempted suicide via hanging. He received multiple facial fractures, which were deemed to be non -operable and he has been under the care of the Trauma Service since admission. At this time, Mr. Rios has no complaints overnight other than a subjective headache and intermittent nausea and vomiting. He denies changes or loss in vision, epistaxis, fevers, chills, or night sweats, shortness of breath, cough, chest pain, abdominal pain, diarrhea, difficulty passing stool, difficulty passing urine or dysuria. Currently, his pain is managed with acetaminophen 1000 mg q.6 hours and tramadol 50 mg q.6 hours. He has a sitter in the room at all times due to his recent suicide attempt. OBJECTIVE: VITAL SIGNS: Temperature 98.6, heart rate 98, blood pressure 160/84, respiration rate 17, and O2 saturations 95% on room air. GENERAL: Mr. Adams appeared well and was resting comfortably in bed at the time of the evaluation. HENT: Revealed multiple ecchymoses and a repaired laceration over the right orbit. Both eyes demonstrated PERRLA with extraocular muscles intact. No signs of scleral injection. Hearing and vision were grossly normal. Both nares were patent and without erythema or rhinorrhea. Oral cavity revealed moist mucous membranes with good dentition and without erythema or exudates. Neck demonstrated full range of motion without tracheal deviation or lymphadenopathy. Mild ecchymosis was noted at the inferior aspect of the neck, likely resultant from his recent suicide attempt via hanging. No deformities of the chest were noted. Clear breath sounds were heard bilaterally. CARDIOVASCULAR: Regular rate and rhythm without murmurs, clicks, gallops, or rubs. ABDOMEN: Revealed normoactive bowel sounds without tenderness to palpation, guarding, rebound, or rigidity. EXTREMITIES: Lower extremities were free of edema, and pulses were intact bilaterally at the dorsalis pedis arteries. ASSESSMENT: 49-year-old male with multiple facial fractures secondary to a fall that occurred during an attempted suicide via hanging. PLAN: Continue to management patient's pain and ensure continued observation. Evaluate clinically if deterioration of eyesight or consciousness occurs. Coordinate closely with [facility], Case Management and [employer] [facility] as needed and plan for discharge to [facility] later this afternoon. Dr. Albert Turner personally evaluated this patient and agrees with the aforementioned assessment and plan. Job ID: [id number] MTDD
--- NOTE | 2019-06-10 03:22 | DIS ---
DATE OF ADMISSION: 06/07/2019 DATE OF DISCHARGE: 06/09/2019 RESIDENT: Vaughn Martínez MD. ADMITTING ATTENDING: Albert Turner DO, Trauma Service. DISCHARGE ATTENDING: Albert Turner DO, Trauma Service. CONSULT: Kamari Rodriguez MD, Plastic Surgery. PROCEDURE: Repair of laceration over the right orbit performed in the ED by Dr. Kamari Rodriguez (Plastic Surgery). Brain CT revealing no evidence of acute intracranial process with the bony calvarium intact. Minimal fluid in the right maxillary sinus. Right-sided periorbital soft tissue swelling and possible fracture of the right maxillary and orbital wall. Cervical C-spine CT which revealed no evidence of fracture. Straightening of normal cervical lordosis. Chest x-ray which revealed no masses or consolidation. Facial bone CT which revealed a right frontal scalp laceration and periorbital posttraumatic change. Bilateral nasal bone fractures that were nondisplaced and a minimally displaced right orbital floor fracture near the inferior orbital foramen. CT angiography which demonstrated no evidence of carotid dissection or injury. No evidence of significant stenosis based upon NASCET criteria. HOSPITAL COURSE: Mr. Rios is a 49-year-old male who attempted suicide by hanging himself with a belt in the garage. The belt gave way and he fell to the floor, striking his head, falling from a height of approximately 15 to 20 feet. He was seen and evaluated in the emergency department and repair of a laceration over his right orbit that was completed by Dr. Kamari Rodriguez, Plastic Surgery. The patient was medically stable upon admission and was monitored 24 hours per day via a sitter based on his history of suicide attempts. His hospital stay was unremarkable. Imaging was performed that demonstrated the results mentioned above. Laboratory values revealed a WBC of 9.4, hemoglobin 17.3, hematocrit 54.7, and platelet count 245. Chemistry panel that revealed sodium of 139, potassium 4, chloride 103, carbon dioxide 26, BUN of 11, creatinine of 1.3, glucose of 105, phosphorus of 1.9, magnesium 1.8. Total bilirubin 0.9, AST 18, ALT 19, alkaline phosphatase 105. Creatine kinase 160, troponin 0.012, total serum protein 7.3, albumin 4.4, globulin 2.9, TSH 2.02. Urine drug screen was positive for opiates and cannabinoids. The patient was seen multiple times by [facility] as well as the hospital construction stonemason. DISPOSITION: Guarded. DISCHARGE INSTRUCTIONS: 1. Location: [facility] in [place], [place]. 2. Diet: Heart healthy. 3. Activity: As tolerated. 4. Followup: The patient was advised that he should follow up with Dr. Jones in 7 days. Due to the patient's history of multiple suicide attempts, it was recommend that the patient seek additional followup with outpatient psychiatry if needed or if indicated by [facility]. Dr. Albert Turner was present during the evaluation of this patient, and agreed with the discharge summary as stated above. Job ID: [id number] MTDD
[2019-06-10] MEDS ORDERED: DULoxetine 60 MG CAP PO SCH (09:00)
== END 2019-06-09 12:49 | disposition short-term general hospital (02) ==
LOC: EEVIPCON 15:41 → SCSER 15:41 → SURG B 18:14
PROVIDERS: ADMIT Specialist; ATTEND Specialist
DX: S02.2XXA Fracture of nasal bones, initial encounter for closed fracture (principal); S02.31XA Fracture of orbital floor, right side, initial encounter for closed fracture; S01.01XA Laceration without foreign body of scalp, initial encounter; S06.0X9A Concussion with loss of consciousness of unspecified duration, initial encounter; F12.10 Cannabis abuse, uncomplicated; F41.9 Anxiety disorder, unspecified; F32.9 Major depressive disorder, single episode, unspecified; I10 Essential (primary) hypertension; N17.9 Acute kidney failure, unspecified; Z79.899 Other long term (current) drug therapy; Z88.1 Allergy status to other antibiotic agents; Z88.6 Allergy status to analgesic agent; W17.89XA Other fall from one level to another, initial encounter; X83.8XXA Intentional self-harm by other specified means, initial encounter
CPT/HCPCS: 12054; 36415; 70450; 70486; 70498; 71045; 72125; 80048; 80053; 80306; 80307; 81003; 81015; 82550; 83735; 84100; 84443; 84484; 85025; 85027; 90471; 90715; 93005; 96361; 96374; 96375; 96376; G0378; J0131; J0360; J2001; J2270; J2405; J2550

== ENCOUNTER 2022-07-23 18:00 | Outpatient (CLI) | payer BC | END 2022-07-23 18:01 | disposition home or self-care (01) | LOC: SLEEPLAB 18:00 | PROVIDERS: ATTEND Family Medicine | DX: G47.33 Obstructive sleep apnea (adult) (pediatric) (principal); G47.10 Hypersomnia, unspecified | CPT/HCPCS: 95800 ==